=== PATIENT | female | born 1950 | race Caucasian/White ===

== ENCOUNTER 2019-09-30 21:55 | Emergency (ER) | payer OTHER ==
--- OUTSIDE RECORDS SUMMARY | 2019-09-30 21:59 | XMS REPORT | Clinical Summary ---
:1950 Author Organization [facility] Address [address] [place] [address] Care Team Providers Name Role Phone Carlos Alberto Dickens DO Primary Care Provider Allergies Active Allergy Reactions Severity Noted Date Comments Penicillin G High 12/24/2015 In childhood wi th hospitalization. Medications Medication Sig Dispensed Refills Start Date End Date Status montelukast (SINGULAIR) Take 10 mg by 0 Active 10 mg tablet mouth nightly. levocetirizine (XYZAL) Take 5 mg by 0 Active 5 MG tablet mouth every evening. omeprazole (PriLOSEC) Take 40 mg by 0 Active 40 MG capsule mouth daily. doxycycline Take 100 mg by 0 Act krystle (VIBRAMYCIN) 100 MG mouth 2 (two) oral dosage form times a day. ALPRAZolam (XANAX) 0.5 Take 0.5 mg by 0 Active MG tablet mouth nightly as needed for anxiety. INSULIN SUBCUTANEOUS Inject under the 0 Active PUMP, HUMULIN, 100 skin UNIT/ML INSULIN PUMP continuously. INFUSION (HumuLIN,NovoLIN) acetaminophen-codeine Take 1 tablet by 0 Active (TYLENOL #3) 300-30 mg mouth daily as per tablet needed for moderate pain. Active Problems Problem Noted Date Rectal mass 12/27/2015 Family History Medical History Relation Name Comments Diabetes Father Hypertension Father Emphysema Mother Lung cancer Mother Relation Name Status Comments Father Mother Social History Tobacco Use Types Packs/Day Years Used Date Former Smoker Quit: 12/24/18 97 Smokeless Tobacco: Former User Q uit: 1995 Alcohol Use Drinks/Week oz/Week Comments No Sex Assigned at Date Recorded Not on file Job Start Date Occupation Industry Not on file Not on file Not on file Travel History Travel Start Travel End No recent travel history available. 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
[2019-10-01] MEDS ORDERED: HYDROCODONE/CHLORPHEN 5 ML/OSYR ONE (00:51)
--- NOTE | 2019-10-01 04:32 | EDPHYS ---
Physician Documentation [facility] Name: Lou Leroy Age: 68 yrs Sex: Female : 1950 Arrival Date: 09/30/2019 Time: 21:57 Bed 23 Private MD: ED Physician González Stephenson HPI: 09/30 00:09 This 68 yrs old Female presents to ER via Ambulatory with complaints of Sore snw Throat, Shortness Of Breath. 00:09 The patient presents with sore throat, dysphagia, of solids. The patient describes snw throat pain as raw, scratchy. Onset: The symptoms/episode began/occurred gradually, 2 day(s) ago, and became persistent. Severity of symptoms: At their worst the symptoms were moderate, severe. Associated signs and symptoms: Pertinent positives: cough, dysphagia, fatigue. The patient has experienced similar episodes in the past. The patient has not recently seen a physician. Historical: - Allergies: 09/29 23:48 PENICILLINS; sg - Home Meds: 09/30 00:03 Celebrex 200 mg Oral cap 1 cap once daily [Active]; trazodone 50 mg Oral tab [Active]; sg doxycycline hyclate 100 mg Oral cap 1 cap once daily [Active]; Omeprazole Oral [Active]; buspirone Oral [Active]; Flonase Nasal [Active]; Spiriva with HandiHaler inhalation inhalation [Active]; olmesartan oral oral [Active]; Zyrtec Oral [Active]; Singulair Oral [Active]; Xanax Oral [Active]; - PMHx: 00:03 Asthma; sg - Immunization history:: Adult Immunizations not up to date. - Social history:: Smoking status: Patient denies any tobacco usage or history of. ROS: 00:08 Constitutional: Negative for fever, chills, and weight loss, Eyes: Negative for injury, snw pain, redness, and discharge, Neck: Negative for injury, pain, and swelling, Cardiovascular: Negative for chest pain, palpitations, and edema, Abdomen/GI: Negative for abdominal pain, nausea, vomiting, diarrhea, and constipation, Back: Negative for injury and pain, : Negative for injury, bleeding, discharge, and swelling, MS/Extremity: Negative for injury and deformity, Skin: Negative for injury, rash, and discoloration, Neuro: Negative for headache, weakness, numbness, tingling, and seizure, Psych: Negative for depression, anxiety, suicide ideation, homicidal ideation, and hallucinations. 00:08 ENT: Positive for sore throat. 00:08 Respiratory: Positive for cough, pleurisy, of the chest, shortness of breath, on exertion. wheezing. Exam: 00:06 Head/Face: Normocephalic, atraumatic. Eyes: Pupils equal round and reactive to light, snw extra-ocular motions intact. Lids and lashes normal. Conjunctiva and sclera are non-icteric and not injected. Cornea within normal limits. Periorbital areas with no swelling, redness, or edema. ENT: Nares patent. No nasal discharge, no septal abnormalities noted. Tympanic membranes are normal and external auditory canals are clear. Oropharynx with no redness, swelling, or masses, exudates, or evidence of obstruction, uvula midline. Mucous membranes moist. Hoarse voice Neck: Trachea midline, no thyromegaly or masses palpated, and no cervical lymphadenopathy. Supple, full range of motion without nuchal rigidity, or vertebral point tenderness. No Meningismus. Chest/axilla: Normal chest wall appearance and motion. Nontender with no deformity. No lesions are appreciated. Cardiovascular: Regular rate and rhythm with a normal S1 and S2. No gallops, murmurs, or rubs. Normal PMI, no JVD. No pulse deficits. 00:06 Abdomen/GI: Soft, non-tender, with normal bowel sounds. No distension or tympany. No guarding or rebound. No evidence of tenderness throughout. Back: No spinal tenderness. No costovertebral tenderness. Full range of motion. Skin: Warm, dry with normal turgor. Normal color with no rashes, no lesions, and no evidence of cellulitis. MS/ Extremity: Pulses equal, no cyanosis. Neurovascular intact. Full, normal range of motion. Neuro: Awake and alert, GCS 15, oriented to person, place, time, and situation. Cranial nerves II-XII grossly intact. Motor strength 5/5 in all extremities. Sensory grossly intact. Cerebellar exam normal. Normal gait. Psych: Awake, alert, with orientation to person, place and time. Behavior, mood, and affect are within normal limits. 00:06 Constitutional: The patient appears alert, awake, anxious. 00:06 Respiratory: the patient does not display signs of respiratory distress, Respirations: shallow respirations, Breath sounds: rhonchi, + upper airway congestion. wheezing: harsh, painful cough. Vital Signs: 09/29 22:09 BP 122 / 58; Pulse 72; Resp 18; Temp 97.2; Pulse Ox 100% on R/A; sg 22:30 BP 142 / 78; Pulse 78; Resp 18; Temp 98.2; Pulse Ox 100% on R/A; sg 09/30 02:00 BP 136 / 72; Pulse 77; Resp 18; Temp 98.4; Pulse Ox 100% on R/A; sg 04:00 BP 132 / 77; Pulse 72; Resp 18; Temp 98.1; Pulse Ox 100% on R/A; Pain 0/10; sg MDM: 09/29 23:24 Patient medically screened. w 09/30 03:22 Data reviewed: vital signs, nurses notes. Counseling: I had a detailed discussion with snw the patient and/or guardian regarding: the historical points, exam findings, and any diagnostic results supporting the discharge/admit diagnosis. Transition of care: After a detail discussion of the patient's case, care is transferred to González Stephenson MD. 09/29 23:50 Order name: COVID-19 09/30 03:00 Order name: CREATININE WHOLE BLOOD; Complete Time: 03:06 [facility] 09/29 23:50 Order name: Chest Single View XRAY mw2 09/30 01:37 Order name: Chest For Pe Angio [facility] 09/30 01:24 Order name: IV Saline Lock; Complete Time: 02:42 sg Administered Medications: 00:30 Drug: Tussionex Pennkinetic ER 5 ml Route: PO; sg 00:53 Follow up: Response: No adverse reaction 01:00 Follow up: Response: No adverse reaction Disposition: 06:52 Co-signature as Attending Physician, González Stephenson MD I agree with the assessment and 4 plan of care. Disposition: 10/01/19 04:31 Discharged to Home. Impression: Dyspnea, Acute pharyngitis, unspecified. - Condition is Stable. - Discharge Instructions: COVID-19, Sore Throat, Viral Respiratory Infection. - Prescriptions for Ibuprofen 800 mg Oral Tablet - take 1 tablet by ORAL route every 8 hours As needed take with food; 30 tablet. codeine- guaifenesin 10-100 mg/5 mL Oral liquid - take 10 milliliter by ORAL route every 4 hours; 100 milliliter. Tessalon Perles 100 mg Oral Capsule - take 1 capsule by ORAL route every 8 hours As needed; 15 capsule. - Medication Reconciliation Form, Thank You Letter, Antibiotic Education, Prescription Opioid Use form. - Follow up: Private Physician; When: Upon discharge from the Emergency Department; Reason: Recheck today's complaints, Continuance of care, Re-evaluation by your physician. - Problem is an ongoing problem. - Symptoms have improved. Signatures: Dispatcher [employer] [facility] Virgilio Escalante RN RN Kathy Levy, RDA-C RDA-Csnw González Stephenson MD MD tw4 Corrections: (The following items were deleted from the chart) 01:37 01:27 Thorax W/ Con+CT.RAD.BRZ ordered. [facility] 04:44 04:31 10/01/2019 04:31 Discharged to Home. Impression: Dyspnea; Acute pharyngitis, sg unspecified. Condition is Stable. Forms are Medication Reconciliation Form, Thank You Letter, Antibiotic Education, Prescription Opioid Use. Follow up: Private Physician; When: Upon discharge from the Emergency Department; Reason: Recheck today's complaints, Continuance of care, Re-evaluation by your physician. Problem is an ongoing problem. Symptoms have improved. tw4
--- NOTE | 2019-10-01 04:32 | ER ---
Nurse's Notes [facility] Name: Lou Leroy Age: 68 yrs Sex: Female : 1950 Arrival Date: 09/30/2019 Time: 21:57 Bed 23 Private MD: Diagnosis: Dyspnea;Acute pharyngitis, unspecified Presentation: 09/29 22:09 Chief complaint: Patient states: I have a sore throat for 1-2 days now, and its been sg getting worse today, also have been short of breath this evening as well. I just hope I dont have that virus. Coronavirus screen: Patient reports a cough. Patient reports shortness of breath or difficulty breathing. Patient denies measured and/or subjective temperature greater than 100.4F prior to today's visit. Patient denies travel on a cruise ship or to a country the [facility] currently lists as an affected area. Patient denies contact with known and/or suspected case of COVID-19. Ebola Screen: Patient negative for fever greater than or equal to 101.5 degrees Fahrenheit, and additional compatible Ebola Virus Disease symptoms Patient denies exposure to infectious person. Patient denies travel to an Ebola-affected area in the 21 days before illness onset. No symptoms or risks identified at this time. Initial Sepsis Screen: Does the patient meet any 2 criteria? No. Patient's initial sepsis screen is negative. Does the patient have a suspected source of infection? No. Patient's initial sepsis screen is negative. Risk Assessment: Do you want to hurt yourself or someone else? Patient reports no desire to harm self or others. Onset of symptoms was September 30, 2019. Care prior to arrival: None. 22:09 Method Of Arrival: Ambulatory 22:09 Acuity: SULEMA 3 sg Historical: - Allergies: 23:48 PENICILLINS; sg - Home Meds: 09/30 00:03 Celebrex 200 mg Oral cap 1 cap once daily [Active]; trazodone 50 mg Oral tab [Active]; sg doxycycline hyclate 100 mg Oral cap 1 cap once daily [Active]; Omeprazole Oral [Active]; buspirone Oral [Active]; Flonase Nasal [Active]; Spiriva with HandiHaler inhalation inhalation [Active]; olmesartan oral oral [Active]; Zyrtec Oral [Active]; Singulair Oral [Active]; Xanax Oral [Active]; - PMHx: 00:03 Asthma; sg - Immunization history:: Adult Immunizations not up to date. - Social history:: Smoking status: Patient denies any tobacco usage or history of. Screenin/03 22:09 Abuse screen: Denies threats or abuse. Denies injuries from another. Nutritional sg screening: No deficits noted. Tuberculosis screening: No symptoms or risk factors identified. Never had TB. Fall Risk None identified. Assessment: 22:09 General: Appears in no apparent distress. well groomed, well developed, well nourished, sg Behavior is calm, cooperative, appropriate for age. Pain: Complains of pain in pain when swallowing. Neuro: Level of Consciousness is awake, alert, obeys commands, Oriented to person, place, time, Plate Conditioner are equal bilaterally Speech is normal, Facial symmetry appears normal. Cardiovascular: Patient's skin is warm and dry. Respiratory: Airway is patent Respiratory effort is even, unlabored, Breath sounds are clear. GI: No signs and/or symptoms were reported involving the gastrointestinal system. : No signs and/or symptoms were reported regarding the genitourinary system. EENT: Nares are clear bilaterally Oral mucosa is moist. Throat is pink. Derm: Skin is pink, warm \T\ dry. Musculoskeletal: Circulation, motion, and sensation intact. Range of motion: intact in all extremities. Vital Signs: 22:09 BP 122 / 58; Pulse 72; Resp 18; Temp 97.2; Pulse Ox 100% on R/A; sg 22:30 BP 142 / 78; Pulse 78; Resp 18; Temp 98.2; Pulse Ox 100% on R/A; sg 04 02:00 BP 136 / 72; Pulse 77; Resp 18; Temp 98.4; Pulse Ox 100% on R/A; sg 04:00 BP 132 / 77; Pulse 72; Resp 18; Temp 98.1; Pulse Ox 100% on R/A; Pain 0/10; sg ED Course: 09/29 21:57 Patient arrived in ED. cf2 22:09 Triage completed. sg 22:21 Arm band placed on. sg 22:26 Kathy Granados FNP-C is [facility]. snw 22:26 González Stephenson MD is Attending Physician. snw 23:12 Virgilio Escalante, RN is Primary Nurse. sg 09/30 00:22 Chest Single View XRAY In Process Unspecified. EDMS 01:30 Missed attempt(s): 20 gauge in right antecubital area. Bleeding controlled, band aid sg applied, catheter tip intact. 01:40 Inserted Accessed peripheral vein via ultrasound, utilizing dynamic ultrasound sg technique using ,sterile technique, per hospital protocol. Clean \T\ dry. Dressing intact. Good blood return. Flushes easily. PowerGlide Midline Pro 20 G 10 CM to the RUE. 01:51 Radiology exam delayed due to lab results not completed at this time. (BUN/Creatinine) kw1 IV insertion attempt and/or patient not having appropriate IV at this time. 03:27 Chest For Pe Angio In Process Unspecified. EDMS 03:52 Awaiting radiology results. sg 04:40 Patient has correct armband on for positive identification. Pulse ox on. NIBP on. Head sg of bed elevated. 04:40 No provider procedures requiring assistance completed. IV discontinued, intact, sg bleeding controlled, No redness/swelling at site. Pressure dressing applied. Administered Medications: 00:30 Drug: Tussionex Pennkinetic ER 5 ml Route: PO; sg 00:53 Follow up: Response: No adverse reaction sg 01:00 Follow up: Response: No adverse reaction sg Outcome: 04:31 Discharge ordered by . tw4 04:40 Discharged to home ambulatory. sg 04:40 Condition: good 04:40 Discharge instructions given to patient, Instructed on discharge instructions, follow up and referral plans. medication usage, safety practices, Demonstrated understanding of instructions, follow-up care, medications, Prescriptions given X 3. 04:44 Patient left the ED. sg Addendum: 10/07/2019 09:06 Addendum: COVID-19 Result: Negative result given to RN to notify pt. Attempted to s s contact pt regarding negative COVID-19 swab results. Left voice mail. 10:45 Addendum: COVID-19 Result: Negative result given to RN to notify pt. Notified pt of s s negative COVID 19 swab results. Pt advised that even with a negative test result they should remain in isolation until symptom free for 3 days without medication. Pt also advised to return to the ED for worsening symptoms. Signatures: Dispatcher [employer] EDMS Virgilio Escalante RN RN sg Kathy Olivier, GENERATION MANAGER-C GENERATION MANAGER-Csnw Jillian Varghese RN RN Kaitlyn Lucero kw1 González Stephenson MD MD tw4 Jeff Lopez 2 Corrections: (The following items were deleted from the chart) 09/30 01:51 01:50 Radiology exam delayed due to IV insertion attempt and/or patient not having kw1 appropriate IV at this time. kw1 03:06 09/29 22:09 Acuity: SULEMA 4 sg sg
[2019-10-01 05:28] VITALS: O2SAT 100
[2019-10-01 05:31] VITALS: BP 136/72; TEMP 98.4
--- NOTE | 2019-10-03 10:23 | RAD REPORT ---
EXAM DESCRIPTION: CT CHEST ANGIOGRAPHY WITH IV CONTRAST CLINICAL HISTORY: Ro PE COMPARISON: None Available TECHNIQUE: Multiple helical axial tomographic images were obtained of the chest following administra tion of intravenous contrast per angiographic protocol. Coronal, sagittal, and oblique reformatted im ages were obtained. This exam was performed according to our departmental dose-optimization program, which includes autom ated exposure control, adjustment of the mA and/or kV according to patient size and/or use of iterati ve reconstruction technique. FINDINGS: Thyroid gland: unremarkable. Axilla: unremarkable. Pulmonary arteries: Pulmonary arteries appear patent. No evidence of pulmonary embolism. Aorta: No evidence of aortic dissection or aneurysm. Mediastinum: Unremarkable. No adenopathy. Heart: Heart is normal in size. Lungs/airways: No consolidation. Airways are patent. Mild dependent atelectasis noted. Pleural spaces: No significant pleural effusion. No pneumothorax. Osseous: Unremarkable. Soft tissues: Unremarkable. Visualized abdomen: Cholecystectomy changes are present. IMPRESSION: No acute intrathoracic abnormality. Electronically signed by: Saurabh Martines MD 10/01/2019 4:00 AM CDT Due to temporary technical issues with the PACS/Fluency reporting system, reports are being signed by the in house radiologist without review as a courtesy to ensure prompt reporting. The interpreting r adiologist is fully responsible for the content of the report.
--- NOTE | 2019-10-03 10:24 | RAD REPORT ---
EXAM DESCRIPTION: XR Chest 1 View CLINICAL HISTORY: SOB TECHNIQUE: Single frontal view of the chest is submitted. COMPARISON: None available for comparison FINDINGS: Heart: The cardiothoracic silhouette is accentuated by portable technique and degree of in spiration. Lungs: Minimal patchy bibasilar opacities. Mediastinum: Unremarkable Pleura: No appreciable effusion. No pneumothorax. Bones: Intact Upper abdomen: Unremarkable IMPRESSION: Minimal patchy bibasilar opacities (atelectasis and/or infiltrate). Electronically signed by: Seema Griffin MD 10/01/2019 3:48 AM CDT Due to temporary technical issues with the PACS/Fluency reporting system, reports are being signed by the in house radiologist without review as a courtesy to ensure prompt reporting. The interpreting r adiologist is fully responsible for the content of the report.
== END 2019-10-01 04:44 | disposition home or self-care (01) ==
LOC: ER 21:55
DX: J02.9 Acute pharyngitis, unspecified (principal); Z20.828 Contact with and (suspected) exposure to other viral communicable diseases; J45.909 Unspecified asthma, uncomplicated; Z88.0 Allergy status to penicillin
CPT/HCPCS: 82565; 71275; 71045; 99284; U0001; Q9967

== ENCOUNTER 2020-08-22 06:18 | Day surgery (SDC) | payer OTHER ==
[2020-08-22] MEDS ORDERED: NA CHLORIDE 0.9% 1,000 ML ONE (07:00)
[2020-08-22] MEDS ORDERED: BOTU TOX TYPE A 100 UNIT/VIAL ID ONE (07:32)
[2020-08-22] MEDS ORDERED: propofoL 200 MG/20 ML VIAL IV ONE ×2 (07:41→08:18)
[2020-08-22] MEDS ORDERED: LIDOCAINE 1% MPF 5 ML VIAL ONE (07:42)
[2020-08-22] MEDS ORDERED: SUCCINYLCHOLINE 20 MG/ML (10 ML) IV ONE (07:50)
--- NOTE | 2020-08-22 08:18 | ENDO RPT ---
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 TOPICAL ANESTHETIC: none CONSENT: The patient understands the risks and benefits of the procedure and understands that these risks include, but are not limited to: sedation, allergic reaction, infection, perforation and/or bleeding. Alternative means of evaluation and treatment include, among others: physical exam, x-rays, and/or surgical intervention. The patient elects to proceed with this endoscopic procedure. DESCRIPTION OF PROCEDURE: During intra-op preparation period all mechanical medical equipment was checked for proper function. Hand hygiene and appropriate measures for infection prevention was taken. Procedure, possible complications, and alternatives including but not limited to the possibility of bleeding, perforation, tear, infection, sepsis, need for surgery, need for blood transfusion, and anesthesia related complications were explained to the patient. After the risks, benefits and alternatives of the procedure were thoroughly explained, Informed consent was verified, confirmed and timeout was successfully executed by the treatment team. The patient was placed in the left lateral position. The patient was anesthetized with topical anesthesia. Through the anesthetized oropharyngeal area, the scope was passed without any difficulty. The [id number] ([id number]) endoscope was introduced through the mouth and advanced to the third portion of the duodenum. Retroflexed views revealed a moderate sized hiatal hernia. The gastroscope was then slowly withdrawn and removed. 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 A moderate sized hiatal hernia was found. Mild gastritis was found in the antrum. Multiple biopsies were obtained and sent to pathology. ADVERSE EVENTS: There were no complications. IMPRESSIONS: 1. 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 Moderate sized hiatal hernia 3. Mild gastritis in the antrum, s/p biopsies RECOMMENDATIONS: 1. await biopsy results 2. acid suppression therapy REPEAT EXAM: Vickey Rayo Dr eSigned: Vickey Rayo Dr 08/22/2020 8:18 AM cc: Vitaliy Dickens M.D. CPT CODES: ICD9 CODES: PATIENT NAME: Lou Leroy MR#: [id number]
[2020-08-22 09:14] VITALS: O2SAT 100
[2020-08-22 09:19] VITALS: BP 109/95; TEMP 98.6
== END 2020-08-22 09:00 | disposition home or self-care (01) ==
LOC: OR 06:18
PROVIDERS: ATTEND Internal Medicine Gastroenterology
PROC: 3E0G8GC Introduction of Other Therapeutic Substance into Upper GI, Via Natural or Artificial Opening Endoscopic (ICD-10-PCS; 2020-08-22)
PROC: 0DB68ZX Excision of Stomach, Via Natural or Artificial Opening Endoscopic, Diagnostic (ICD-10-PCS; principal; 2020-08-22 07:30)
DX: R13.10 Dysphagia, unspecified (principal); K22.2 Esophageal obstruction; J44.9 Chronic obstructive pulmonary disease, unspecified; R94.8 Abnormal results of function studies of other organs and systems; J39.2 Other diseases of pharynx; Z20.822 Contact with and (suspected) exposure to COVID-19
CPT/HCPCS: 43239; 43236; 88312; 82947; 88305; U0002; J2704 ×2; J0585; J7030; J0330

== ENCOUNTER 2020-08-26 19:55 | Emergency (ER) | payer OTHER ==
--- NOTE | 2020-08-26 21:33 | ER ---
Nurse's Notes [facility] Name: Lou Leroy Age: 69 yrs Sex: Female : 1950 Arrival Date: 08/26/2020 Time: 19:56 Bed 3 Private MD: Eulalia Dickens H Diagnosis: Dysphagia, unspecified Presentation: 08/26 20:02 Chief complaint: Patient states: had a procedure on her esophagus with Dr. Rayo , iw found a protrusion in her esophagus that food gets stuck on, they put botox in on Thursday, was fine and Thursday, yesterday and today she has hard time eating and talking, food will stick and she coughs and starts choking /gasping for air , sometimes when she breathes in it feels blocked , when he bends down she regurgitates what's in her stomach. Coronavirus screen: At this time, the client does not indicate any symptoms associated with coronavirus-19. Ebola Screen: Patient negative for fever greater than or equal to 101.5 degrees Fahrenheit, and additional compatible Ebola Virus Disease symptoms Patient denies exposure to infectious person. Patient denies travel to an Ebola-affected area in the 21 days before illness onset. No symptoms or risks identified at this time. Initial Sepsis Screen: Does the patient meet any 2 criteria? No. Patient's initial sepsis screen is negative. Does the patient have a suspected source of infection? No. Patient's initial sepsis screen is negative. Risk Assessment: Do you want to hurt yourself or someone else? Patient reports no desire to harm self or others. Onset of symptoms was August 25, 2020. 20:02 Method Of Arrival: Ambulatory iw 20:02 Acuity: SULEMA 2 iw Historical: - Allergies: 20:06 PENICILLINS; iw - Home Meds: 21:39 Buspirone Oral [Active]; Celebrex 200 mg Oral cap 1 cap once daily [Active]; lp1 doxycycline hyclate 100 mg Oral cap 1 cap once daily [Active]; Flonase Nasal [Active]; olmesartan Oral [Active]; Omeprazole Oral [Active]; Singulair Oral [Active]; Spiriva with HandiHaler inhalation [Active]; trazodone 50 mg Oral tab [Active]; Xanax Oral [Active]; Zyrtec Oral [Active]; - PMHx: 20:06 Asthma; iw - Immunization history:: Adult Immunizations up to date. - Social history:: Smoking status: Patient denies any tobacco usage or history of. Screenin:37 Abuse screen: Denies threats or abuse. Denies injuries from another. Nutritional lp1 screening: No deficits noted. Tuberculosis screening: No symptoms or risk factors identified. Fall Risk None identified. Assessment: 20:40 General: Appears in no apparent distress. Behavior is calm, cooperative. Pain: Denies lp1 pain. Neuro: Level of Consciousness is awake, alert, obeys commands, Oriented to person, place, time, situation. Cardiovascular: Patient's skin is warm and dry. Respiratory: Airway is patent Respiratory effort is even, unlabored. GI: No signs and/or symptoms were reported involving the gastrointestinal system. : No signs and/or symptoms were reported regarding the genitourinary system. EENT: No signs and/or symptoms were reported regarding the EENT system. Derm: Skin is pink, warm \T\ dry. Musculoskeletal: No deficits noted. 21:49 Reassessment: Patient and/or family updated on plan of care and expected duration. Pain ea level reassessed. Patient is alert, oriented x 3, equal unlabored respirations, skin warm/dry/pink. Discharge instruction given to patient verbalized the understanding of insturciton. Vital Signs: 20:02 BP 144 / 86; Pulse 97; Resp 16; Temp 97.4; Pulse Ox 100% on R/A; iw 21:30 BP 153 / 73; Pulse 85; Resp 18; Pulse Ox 100% on R/A; lp1 ED Course: 19:56 Patient arrived in ED. es 19:57 Eulalia Dickesn DO is Private Physician. es 20:05 Triage completed. iw 20:06 Arm band placed on. iw 20:41 Renan Justice NP is PHCP. pm1 20:41 González Stephenson MD is Attending Physician. pm1 21:33 Vickey Rayo MD is Referral Physician. pm1 21:37 Cassidy Alatorre, KAZ is Primary Nurse. lp1 21:38 Patient has correct armband on for positive identification. lp1 21:39 No provider procedures requiring assistance completed. Patient did not have IV access lp1 during this emergency room visit. Administered Medications: No medications were administered Outcome: 21:33 Discharge ordered by MD. pm1 21:45 Discharged to home ambulatory. lp1 21:45 Condition: good 21:45 Discharge instructions given to patient, Instructed on discharge instructions, follow up and referral plans. Demonstrated understanding of instructions, follow-up care. 21:50 Patient left the ED. ea Signatures: Celestina Dial Irene, RN RN iw Cassidy Alatorre RN RN lp1 Reann Justice NP [employer] pm1 Elvia Cervantes RN RN ea Corrections: (The following items were deleted from the chart) 20:06 20:02 Acuity: SULEMA 3 iw reymundo
--- NOTE | 2020-08-26 21:33 | EDPHYS ---
Physician Documentation [facility] Name: Lou Leroy Age: 69 yrs Sex: Female : 1950 Arrival Date: 08/26/2020 Time: 19:56 Bed 3 Private MD: Eulalia Dickens H ED Physician González Stephenson HPI: 08/26 21:29 This 69 yrs old Female presents to ER via Ambulatory with complaints of pm1 Difficulty swallowing. 21:29 The patient presents with dysphagia. Onset: The symptoms/episode began/occurred pm1 yesterday. Severity of symptoms: in the emergency department the symptoms are actually worse. Modifying factors: the symptoms are aggravated by fluids, foods. Associated signs and symptoms: The patient has no apparent associated signs or symptoms. The patient has been recently seen by a physician: Dr. Rayo on Thursday for EGD and treatment of esophageal stricture. Historical: - Allergies: 20:06 PENICILLINS; iw - Home Meds: 21:39 Buspirone Oral [Active]; Celebrex 200 mg Oral cap 1 cap once daily [Active]; lp1 doxycycline hyclate 100 mg Oral cap 1 cap once daily [Active]; Flonase Nasal [Active]; olmesartan Oral [Active]; Omeprazole Oral [Active]; Singulair Oral [Active]; Spiriva with HandiHaler inhalation [Active]; trazodone 50 mg Oral tab [Active]; Xanax Oral [Active]; Zyrtec Oral [Active]; - PMHx: 20:06 Asthma; iw - Immunization history:: Adult Immunizations up to date. - Social history:: Smoking status: Patient denies any tobacco usage or history of. ROS: 21:29 Constitutional: Negative for fever, chills, and weight loss, Eyes: Negative for injury, pm1 pain, redness, and discharge. 21:29 Neck: Negative for injury, pain, and swelling, Cardiovascular: Negative for chest pain, palpitations, and edema, Respiratory: Negative for shortness of breath, cough, wheezing, and pleuritic chest pain, Abdomen/GI: Negative for abdominal pain, nausea, vomiting, diarrhea, and constipation, Back: Negative for injury and pain, MS/Extremity: Negative for injury and deformity, Skin: Negative for injury, rash, and discoloration. 21:29 Neuro: Negative for headache, weakness, numbness, tingling, and seizure. 21:29 ENT: Positive for difficulty swallowing, Negative for difficulty handling secretions, hoarseness. Exam: 21:29 Constitutional: This is a well developed, well nourished patient who is awake, alert, pm1 and in no acute distress. Head/Face: Normocephalic, atraumatic. 21:29 Skin: Warm, dry with normal turgor. Normal color with no rashes, no lesions, and no evidence of cellulitis. 21:29 MS/ Extremity: Pulses equal, no cyanosis. Neurovascular intact. Full, normal range of motion. 21:29 ENT: Mouth: Lips: normal, Oral mucosa: normal, pink and intact, moist, Posterior pharynx: no acute changes. 21:29 Cardiovascular: Exam negative for acute changes, Rate: normal, Rhythm: regular, Pulses: no pulse deficits are appreciated. 21:29 Respiratory: Exam negative for acute changes, respiratory distress, shortness of breath, the patient does not display signs of respiratory distress. 21:29 Abdomen/GI: Inspection: abdomen appears normal, Palpation: abdomen is soft and non-tender, in all quadrants. 21:29 Neuro: Orientation: is normal, Mentation: is normal, Motor: is normal, moves all fours. Vital Signs: 20:02 BP 144 / 86; Pulse 97; Resp 16; Temp 97.4; Pulse Ox 100% on R/A; iw 21:30 BP 153 / 73; Pulse 85; Resp 18; Pulse Ox 100% on R/A; lp1 MDM: 20:50 Patient medically screened. pm1 21:29 ED course: Reviewed patient presentation, barium swallow study, EGD and cricopharyngeus pm1 stricture treatment on Thursday by Dr. Rayo with Dr. Stephenson. Patient is able to swallow and no stuck food bolus sensation present. Patient with no acute issue that can be treated in the ER. Patient given reassurance to follow liquid and soft diet and to follow up with Dr. Rayo for definitive treatment and evaluation such as barium swallow test. 21:30 Data reviewed: vital signs. Data interpreted: Pulse oximetry: on room air is 100 %. pm1 Interpretation: normal. Counseling: I had a detailed discussion with the patient and/or guardian regarding: the historical points, exam findings, and any diagnostic results supporting the discharge/admit diagnosis, discussed findings from EGD and the treatment. Patient is able to drink fluids and does not have food bolus stuck. Explained return precautions. Administered Medications: No medications were administered Disposition: 08/26/20 21:33 Discharged to Home. Impression: Dysphagia, unspecified. - Condition is Stable. - Discharge Instructions: Dysphagia. - Medication Reconciliation Form, Thank You Letter, Antibiotic Education, Prescription Opioid Use form. - Follow up: Emergency Department; When: As needed; Reason: Worsening of condition. Follow up: Vickey Rayo MD; When: 2 - 3 days; Reason: Recheck today's complaints, Continuance of care, Re-evaluation by your physician. - Problem is new. - Symptoms have improved. Signatures: Teresa Brar, RN KAZ iw Cassidy Alatorre RN RN lp1 Renan Justice, [employer] DIRECTOR pm1 Elvia Cervantes RN RN ea Corrections: (The following items were deleted from the chart) 21:50 21:33 08/26/2020 21:33 Discharged to Home. Impression: Dysphagia, unspecified. ea Condition is Stable. Forms are Medication Reconciliation Form, Thank You Letter, Antibiotic Education, Prescription Opioid Use. Follow up: Emergency Department; When: As needed; Reason: Worsening of condition. Follow up: Vickey Rayo; When: 2 - 3 days; Reason: Recheck today's complaints, Continuance of care, Re-evaluation by your physician. Problem is new. Symptoms have improved. pm1
[2020-08-26 21:55] VITALS: BP 144/86; TEMP 97.4; O2SAT 100
== END 2020-08-26 21:50 | disposition home or self-care (01) ==
LOC: ER 19:55
DX: R13.10 Dysphagia, unspecified (principal); J45.909 Unspecified asthma, uncomplicated; Z88.0 Allergy status to penicillin
CPT/HCPCS: 99281